=== PATIENT | male | born 1955 | race Caucasian/White ===

== ENCOUNTER 2022-10-18 06:11 | Day surgery (SDC) | payer MEDICARE ==
[~2022-10-18] VITALS: Ht 165.1 cm; Wt 73.4 kg
[~2022-10-18 06:11] MED LIST: HIGH BP MED
--- NOTE | 2022-10-18 10:49 | NUR ---
10/18/22 1049 Neelam Kim PT. VERABLIZES READY TO GO HOME. SATS 93-96% WITH ENC. TO TAKE DEEP BREATHS IN THRU HIS NOSE & OUT THRU HIS MOUTH. PT. TAKING DEEP BREATHS & BREATHING FAST AT TIMES. PT. DENIED SOB. PT. & VERBALIZE PT. BREATHS LIKE THIS AT HOME. PT. REMINDED NO WEIGHTBEARING. SBA IN ROOM WITH PT. & TO GET PT. DRESSED. PT. TAKEN OUT BY WC WITH SBA INTO CAR.
== END 2022-10-18 10:43 | disposition home or self-care (01) ==
LOC: ORSCSDS 06:11
PROVIDERS: Podiatrist Foot & Ankle Surgery
PROC: 0QSN04Z Reposition Right Metatarsal with Internal Fixation Device, Open Approach (ICD-10-PCS; principal; 2022-10-18 07:30)
PROC: 0QSQ04Z Reposition Right Toe Phalanx with Internal Fixation Device, Open Approach (ICD-10-PCS; principal; 2022-10-18 07:30)
PROC: 0QBN0ZZ Excision of Right Metatarsal, Open Approach (ICD-10-PCS; principal; 2022-10-18 07:30)
DX: M20.11 Hallux valgus (acquired), right foot (principal); M79.671 Pain in right foot; M77.50 Other enthesopathy of unspecified foot and ankle; S94.21XA Injury of deep peroneal nerve at ankle and foot level, right leg, initial encounter; M20.5X1 Other deformities of toe(s) (acquired), right foot; G57.91 Unspecified mononeuropathy of right lower limb; M89.9 Disorder of bone, unspecified; Z87.891 Personal history of nicotine dependence
CPT/HCPCS: 82947; A9270; C1713; C1769; J0690; J2001; J2250; J2704; J2795; J3010; J7120